=== PATIENT | male | born 1985 | race Caucasian/White ===

== ENCOUNTER 2018-07-28 15:08 | Outpatient (CLI) | payer MEDICAID, OTHER ==
[2018-07-28] MEDS ORDERED: ALPR2TAB2 PO (15:44)
[2018-07-28] MEDS ORDERED: CARI350T PO (15:44)
[2018-07-28] MEDS ORDERED: BUPR1FIL3 SL (15:44)
== END 2018-07-28 23:59 | disposition home or self-care (01) ==
LOC: STAR 15:08
PROVIDERS: ATTEND Orthopaedic Surgery
DX: Z02.9 Encounter for administrative examinations, unspecified (principal)

== ENCOUNTER 2018-08-01 10:34 | Day surgery (SDC) | payer MEDICAID, OTHER ==
[~2018-08-01] VITALS: Ht 188 cm; Wt 78.9 kg
[~2018-08-01 10:34] MED LIST: ALPR2TAB2 PO; BUPR1FIL3 SL; CARI350T PO
[2018-08-01] MEDS ORDERED: BUPIVACAINE/PF 0.5% ONE (10:45)
[2018-08-01 11:06] VITALS: BP 118/80
[2018-08-01] MEDS ORDERED: LACTATED RINGERS 1,000 ML IV SCH (12:00)
[2018-08-01] MEDS ORDERED: MIDAZOLAM 1 MG/ML, 2ML ONE (12:35)
[2018-08-01] MEDS ORDERED: CEFAZOLIN 1,000 MG ONE (12:37)
[2018-08-01] MEDS ORDERED: ONDANSETRON 2MG/ML, 2ML ONE (12:37)
[2018-08-01] MEDS ORDERED: DEXAMETHASONE 4 MG/ML, 1ML ONE (12:37)
[2018-08-01] MEDS ORDERED: HYDROmorphone 2 MG/ML, 1ML ONE ×3 (12:37→14:40)
[2018-08-01] MEDS ORDERED: PROPOFOL 10 MG/ML, 20ML ONE (12:54)
[2018-08-01] MEDS ORDERED: SUCCINYLCHOLINE 20 MG/ML, 10ML ONE (12:54)
[2018-08-01] MEDS ORDERED: FENTANYL PF 100 MCG/2ML IV PRN (13:00)
[2018-08-01] MEDS ORDERED: PROMETHAZINE 25 MG/ML, 1ML IV PRN (13:00)
[2018-08-01] MEDS ORDERED: LABETALOL 5MG/ML, 20ML IV PRN (13:00)
[2018-08-01] MEDS ORDERED: MIDAZOLAM 1 MG/ML, 2ML IV PRN (13:00)
[2018-08-01] MEDS ORDERED: ACETAMINOPHEN 325 MG TABLET PO PRN (13:00)
[2018-08-01] MEDS ORDERED: hydrALAzine 20 MG/ML, 1ML IV PRN (13:00)
[2018-08-01] MEDS ORDERED: PROMETHAZINE 12.5 MG SUPP PR PRN (13:00)
[2018-08-01] MEDS ORDERED: EPHEDRINE 50 MG/ML, 1ML IVPush PRN (13:00)
[2018-08-01] MEDS ORDERED: ONDANSETRON ODT 8 MG PO PRN (13:00)
[2018-08-01] MEDS ORDERED: ALBUTEROL SULFATE 2.5 MG/3 ML NPPB PRN (13:00)
[2018-08-01] MEDS ORDERED: OXYcodone 5 MG/5 ML ORAL.SOL UDC PO PRN (13:00)
[2018-08-01] MEDS ORDERED: HALOPERIDOL 5 MG/ML IV PRN (13:00)
[2018-08-01] MEDS ORDERED: MEPERIDINE/PF 25MG/0.5ML IVPush PRN (13:00)
[2018-08-01] MEDS ORDERED: ONDANSETRON 2MG/ML, 2ML IV PRN (13:00)
[2018-08-01] MEDS ORDERED: DIAZEPAM 5 MG/ML, 2ML IVPush PRN (13:00)
[2018-08-01] MEDS ORDERED: MORPHINE SULFATE 4 MG/ML, 1ML IVPush PRN (13:00)
[2018-08-01] MEDS ORDERED: KETOROLAC 30 MG/1 ML ONE (14:07)
[2018-08-01] MEDS ORDERED: OXYcodone 5 MG/5 ML ORAL.SOL UDC ONE (14:40)
[2018-08-01] MEDS: HYDROmorphone 2 MG/ML, 1ML IVPush PRN ×2 (14:40→14:45)
== END 2018-08-01 17:20 | disposition home or self-care (01) ==
LOC: OUT 10:34
PROVIDERS: ATTEND Orthopaedic Surgery
DX: Z47.2 Encounter for removal of internal fixation device (principal)
CPT/HCPCS: 20680; 73140; 76000; J0330; J0690; J1100; J1170; J1885; J2250; J2405; J2704; J3490; J7120